=== PATIENT | female | born 1960 | race Two or more races ===

== ENCOUNTER 2024-02-14 02:42 | Inpatient (IN) | payer BC, OTHER ==
[~2024-02-14] VITALS: Ht 172.7 cm; Wt 67.1 kg
[2024-02-14 22:55] VITALS: BP 126/57; PULSE 48; RESP 16; O2SAT 98
[2024-02-15] VITALS (18 sets, daily range): BP systolic 96–126; BP diastolic 47–60; PULSE 48–64; RESP 12–97; TEMP 97.9–98.7; O2SAT 95–100
[2024-02-15] MEDS ORDERED: ONDANSETRON HCL 4 MG/2 ML VIAL IV PRN (03:00)
[2024-02-15] MEDS ORDERED: NITROGLYCERIN 0.4 MG SL TAB SL PRN (03:00)
[2024-02-15] MEDS ORDERED: ACETAMINOPHEN 325 MG TAB PO PRN (03:00)
[2024-02-15 03:50] LABS: Basophils # (auto) 0 10 ^3/uL (0-0.2); Eosinophils # (auto) 0.1 10 ^3/uL (0-0.8); Eosinophils % (auto) 2.9 % (0.0-7.0); Hematocrit 34.2 % (36.0-46.0); Hemoglobin 11.5 g/dL (12.2-16.2); Lymphocytes # (auto) 1.3 10 ^3/uL (0.4-5.4); Lymphocytes % (auto) 38.4 % (10.0-50.0); Mean Corpuscular Hemoglobin 30.7 pg (28.0-32.0); Mean Corpuscular Hgb Conc. 33.6 g/dL (32.0-36.0); Mean Corpuscular Volume 91.3 fL (80.0-100.0); Monocytes # (auto) 0.4 10 ^3/uL (0-1.3); Monocytes % (auto) 11.9 % (0.0-12.0); Neutrophils # (auto) 1.6 10 ^3/uL (1.6-8.6); Neutrophils % (auto) 45.8 % (37.0-80.0); Nucleated Red Blood Cells % 0.2 %; Red Blood Cells 3.75 10^6/uL (4.0-5.20); Red Cell Distribution Width 12.3 % (11.8-14.3); White Blood Cell 3.5 10^3/uL (4.4-10.8)
[2024-02-15 03:54] LABS: Alanine Aminotransferase 32 U/L (7-40); Albumin 3.3 g/dL (3.2-4.8); Alkaline Phosphatase 65 U/L (46-116); Aspartate Aminotransferase 42 U/L (13-40); Blood Urea Nitrogen 8 mg/dL (9-23); Calcium 8.5 mg/dL (8.7-10.4); Chloride 107 mmol/L (98-107); Glucose 105 mg/dL (74-106); Potassium 3.9 mmol/L (3.5-5.1); Sodium 137 mmol/L (136-145)
[2024-02-15 03:55] LABS: Bilirubin, Total 0.5 mg/dL (0.2-1.0); Total Protein 7.1 g/dL (5.7-8.2)
[2024-02-15 04:27] LABS: Anion Gap 5 (5-15); Carbon Dioxide 25 mmol/L (20-30)
[2024-02-15 07:16] LABS: Urine Bacteria NONE SEEN /hpf (None Seen); Urine Blood Negative /uL (Negative); Urine Clarity Clear (Clear); Urine Protein, UAD Negative (Negative); Urine Specific Gravity 1.025 (1.001-1.035); Urine Urobilinogen Normal (Negative); Urine WBC 2 /hpf (0 - 5)
[2024-02-15 07:20] LABS: Urine Color STRAW (Yellow)
[2024-02-15 08:05] LABS: Triglycerides 71 mg/dL (< 150)
[2024-02-15 08:06] LABS: LDL Cholesterol 117 mg/dL (< 100)
[2024-02-15 08:07] LABS: Cholesterol 170 mg/dL (< 200); HDL Cholesterol 48 mg/dL (40-59)
[2024-02-15] MEDS ORDERED: ASPirin 81 mg TAB PO SCH (10:00)
[2024-02-15 12:19] LABS: INR 0.97 (0.9-1.15); Partial Thromboplastin Time 26.3 SEC (24.5-34.5); Prothrombin Time 10.2 sec (9.3-11.8)
[2024-02-15 12:26] LABS: Chloride 105 mmol/L (98-107); Potassium 3.9 mmol/L (3.5-5.1); Sodium 137 mmol/L (136-145)
[2024-02-15 12:27] LABS: Anion Gap 3 (5-15); Calcium 8.6 mg/dL (8.7-10.4); Carbon Dioxide 29 mmol/L (20-30)
[2024-02-15 12:32] LABS: BUN/Creatinine Ratio 16.7 (10.0-20.0); Blood Urea Nitrogen 10 mg/dL (9-23); Glucose 100 mg/dL (74-106)
[2024-02-15] MEDS: MIDAZOLAM HCL 2MG/2ML 2ml VIAL (1mg/ml) ONE (13:42)
[2024-02-15] MEDS: VERAPAMIL 2.5MG/ML INJ 2ML VIAL IV ONE (13:42)
[2024-02-15] MEDS: fentaNYL CITRATE 100 MCG/2 ML VL ONE (13:42)
[2024-02-15] MEDS: HEPARIN SODIUM (PORCINE) 5000 UNITS/ML 1ML VIAL ONE (13:42)
[2024-02-15] MEDS: ANGIOMAX 250 MG VIAL IV ONE (13:42)
[2024-02-15] MEDS: SODIUM CHL 0.9% 0 ML ONE (13:42)
[2024-02-15] MEDS: IODIXANOL 320MG/ML 100ML BTL IV ONE (13:43)
[2024-02-15] MEDS: LIDOCAINE 2%HCL (LOCAL ANESTH.) INJ 20ML MDV ONE (13:43)
[2024-02-15] MEDS: MORPHINE SULFATE INJ 2 MG/ml SYRG IV PRN (18:59)
[2024-02-15] MEDS: ATORVASTATIN 20 MG TAB PO SCH (21:28)
[2024-02-15] MEDS ORDERED: ATORVASTATIN 20 MG TAB PO SCH (22:00)
[2024-02-16] VITALS (7 sets, daily range): BP systolic 106–120; BP diastolic 56–71; PULSE 60–67; RESP 15–20; TEMP 37; O2SAT 93–97
[2024-02-16] MEDS: LEVOTHYROXINE SODIUM 88 MCG TAB PO SCH (05:14)
[2024-02-16 05:16] LABS: Chloride 104 mmol/L (98-107); Potassium 3.8 mmol/L (3.5-5.1); Sodium 136 mmol/L (136-145)
[2024-02-16 05:17] LABS: Anion Gap 4 (5-15); Calcium 8.7 mg/dL (8.7-10.4); Carbon Dioxide 28 mmol/L (20-30)
[2024-02-16 05:22] LABS: BUN/Creatinine Ratio 16.4 (10.0-20.0); Blood Urea Nitrogen 11 mg/dL (9-23); Glucose 99 mg/dL (74-106)
[2024-02-16] MEDS ORDERED: ASPirin 81 mg TAB PO SCH (10:00)
[2024-02-16] MEDS: IBUPROFEN 400 MG TAB PO ONE (11:09)
[2024-02-16] MEDS: PANTOPRAZOLE 40 MG TAB PO SCH (11:09)
[2024-02-16] MEDS: COLCHICINE 0.6 MG CAP PO SCH (11:10)
[2024-02-16] MEDS: IBUPROFEN 400 MG TAB PO SCH (13:47)
[2024-02-16] MEDS ORDERED: COLC0.6T56 PO (14:51)
[2024-02-16] MEDS ORDERED: PANT40T PO (14:51)
[2024-02-16] MEDS ORDERED: ATOR20TA50 PO (14:51)
[2024-02-16] MEDS ORDERED: IBU600T PO (14:51)
[2024-02-16] MEDS ORDERED: LEVO-177 PO (14:51)
[2024-02-16] MEDS ORDERED: TROL10CR33 EX (16:59)
[2024-02-16 17:43] LABS: Erythrocyte Sedimentation Rate 52 mm/hr (0-20)
== END 2024-02-16 19:30 | disposition home or self-care (01) | DRG 287 ==
LOC: WEST WING 22:49 → TELE-WESTW 02-15 03:49
PROVIDERS: ADMIT Internal Medicine; ATTEND Internal Medicine
PROC: 4A023N7 Measurement of Cardiac Sampling and Pressure, Left Heart, Percutaneous Approach (ICD-10-PCS; principal; 2024-02-15)
PROC: B211YZZ Fluoroscopy of Multiple Coronary Arteries using Other Contrast (ICD-10-PCS; 2024-02-15)
DX: I20.0 Unstable angina (principal); I30.9 Acute pericarditis, unspecified; R00.1 Bradycardia, unspecified; E03.9 Hypothyroidism, unspecified; E78.5 Hyperlipidemia, unspecified; G43.909 Migraine, unspecified, not intractable, without status migrainosus; F32.A Depression, unspecified; D64.9 Anemia, unspecified; E11.9 Type 2 diabetes mellitus without complications; Z90.49 Acquired absence of other specified parts of digestive tract; Z82.49 Family history of ischemic heart disease and other diseases of the circulatory system
CPT/HCPCS: 36415; 71045; 80048; 80053; 80061; 81001; 82306; 83036; 83735; 84439; 84443; 84484; 85025; 85379; 85610; 85652; 85730; 86141; 93306; 99152; G0378; J2250; Q9967